=== PATIENT | female | born 1950 | race Caucasian/White ===

== ENCOUNTER 2018-07-28 17:42 | Observation (INO) ==
[2018-07-28] MEDS ORDERED: ASPIRIN PR ONE (17:55)
[2018-07-28 18:30] LABS: BASO# 0.02 X1000 (0.0-0.2); BASO% 0.2 % (0.0-0.8); EOS# 0.06 X1000 (0.0-0.7); EOS% 0.5 % (0.0-10.0); HEMOGLOBIN 13.3 g/dL (12.0-16.0); IMM GRAN# 0.03 X1000 (0.0-0.04); IMM GRAN% 0.3 % (0.0-0.5); LYMPH# 1.73 X1000 (1.2-3.4); LYMPH% 15.2 % (20.5-51.1); MCH 29.8 PG (27-31); MCHC 32.4 g/dL (33-37); MCV 91.7 FL (81-99); MONO# 0.29 X1000 (0.11-0.59); MONO% 2.5 % (1.7-9.3); MPV 10.9 FL (7.4-10.4); NEUT# 9.27 X1000 (1.4-6.5); NEUT% 81.3 % (42.2-75.2); PLT 225 X1000 (130-400); RBC 4.47 XMIL (4.2-5.4); RDW 12.6 % (11.5-14.5)
[2018-07-28 18:34] LABS: INR 0.88; PROTIME 12.6 Seconds (11.0-16.0)
[2018-07-28 18:35] LABS: PTT 29.7 Seconds (22.3-41.8)
[2018-07-28 19:01] LABS: AGAP 15; ALB/GLOB RATIO 1.6; ALBUMIN 4.3 g/dL (3.5-5.0); ALKALINE PHOSPHATASE 75 U/L (32-104); AMYLASE 155 U/L (20-200); BUN 14 mg/dL (8-22); CALCIUM 9.6 mg/dL (8.8-10.2); CHLORIDE 100 mmol/L (98-107); CK PROFILE 71 U/L (24-173); COSMO 279; CREATININE 0.7 mg/dL (0.5-0.9); ESTIMATED GFR > 60; GLUCOSE 146 mg/dL (70-104); GOT 18 U/L (10-30); GPT 20 U/L (10-36); LIPASE 28 U/L (13-60); POTASSIUM 4.1 mmol/L (3.5-5.1); SODIUM 138 mmol/L (136-145); TCO2 23 mmol/L (25-35)
--- NOTE | 2018-07-28 19:06 | Diag Imaging Result Doc PS360 ---
CHEST-2 VIEWS - 07/28/2018 INDICATION: CHEST PAIN COMPARISON: None FINDINGS: There is mild cardiomegaly. Pulmonary vascularity is top normal. No infiltrates or edema. No pneumothorax or pleural effusion. IMPRESSION: Cardiomegaly. Electronically signed by Leonard Chapman 07/28/2018 7:03 PM
[2018-07-28] MEDS ORDERED: ASPIRIN PO ONE (19:23)
[2018-07-28] MEDS ORDERED: ZOFRAN ODT PO ONE (19:59)
[2018-07-28 20:51] LABS: URINE SOURCE CLEAN CATCH
[2018-07-28 21:03] LABS: BILIRUBIN URINE NEGATIVE (NEGATIVE); BLOOD URINE SMALL (NEGATIVE); CLARITY CLOUDY (CLEAR); COLOR YELLOW; GLUCOSE URINE NEGATIVE (NEGATIVE); KETONE URINE 40 mg/dL (NEGATIVE); LEUKOCYTES URINE MODERATE (NEGATIVE); NITRITE URINE NEGATIVE (NEGATIVE); PH URINE 5.5; PROTEIN URINE TRACE mg/dL (NEGATIVE); SP GRAVITY URINE >= 1.030; UROBILINOGEN URINE 0.2 EU/dL (0.2-1.0)
[2018-07-28 21:08] LABS: URINE EPITHELIAL CELLS <10 /HPF (<10); URINE RBC <10 /HPF (<10)
[2018-07-28 21:09] LABS: URINE BACTERIA NEGATIVE /HFP; URINE CAST NONE SEEN /LPF; URINE CRYSTAL NONE SEEN /HPF; URINE SMALL ROUND CELLS TRANSITIONAL PRESENT; URINE YEAST NONE SEEN /HPF
[2018-07-28 21:17] LABS: URINE WBC 20-40 /HPF (<10)
--- NOTE | 2018-07-28 22:02 | Diag Imaging Result Doc PS360 ---
US GB < RUQ (LIMITED) - 07/28/2018 INDICATION: RUG pain TECHNIQUE: COMPARISON: FINDINGS: There is significant fatty change of the liver. The gallbladder is slightly distended. The gallbladder measures about 7.5 x 3.2 cm. There are numerous shadowing gallstones. The patient is apparently tender over the gallbladder. Common bile duct measures 6 mm. No intrahepatic biliary dilation. The pancreas and right kidney are normal. There is a small right renal cyst measuring 1 cm. Aorta, IVC, and main portal vein are patent. IMPRESSION: 1. Gallstones in the gallbladder. Gallbladder tenderness and distention. Suggestive of early acute cholecystitis. Correlate clinically. 2. Significant fatty liver. Electronically signed by Leonard Chapman 07/28/2018 9:59 PM
[2018-07-28] MEDS ORDERED: MORPHINE IV ONE (22:10)
[2018-07-28] MEDS ORDERED: BENADRYL IV ONE (22:11)
--- NOTE | 2018-07-28 22:16 | PROVIDER DOCUMENTATION ---
This chart was entered by Jenae Roger Scribe, acting as scribe for Jorge De Leon MD. HPI-Abdominal Pain/GI Problem - General Chief Complaint: Chest Pain Stated Complaint: HEART ATTACK Time Seen by Provider: 07/28/18 19:59 Source: patient Allergies/Adverse Reactions: Patient Allergies Allergy/AdvReac Type Severity Reaction Status Date / Time No Known Allergies Allergy Verified 07/28/18 20:18 Home Medications: Home Medication List Medication Instructions Recorded Confirmed Last Taken Type Promethazine [Phenergan] 25 mg PO Q6H PRN PRN #20 tab 07/28/18 Unknown Rx Tramadol [Ultram] 50 mg PO Q8HR #20 tab 07/28/18 Unknown Rx - History of Present Illness-ABD Nature of Presenting Problems: pt is a 68 yr old female presenting with RUQ pain, nausea and vomiting onset 1430 today, pt reports Zofran at home without relief. pain radiates across abdomen. pt denies diarrhea but admits having approx 6 stools isince onset. no fever/chills. Abdominal Pain Onset Location: reports: RUQ Pain Radiation: reports: LUQ, epigastric Quality of Pain: reports: cramping, pressure, sharp Severity in ED: reports: severe Onset/Duration: reports: abrupt (1429) Timing: reports: constant (pain is constant but has waves of increased pain) Exposure to sick contacts?: No Modifying Factors: improves with: other medication (Zofran without) Associated Symptoms: reports: nausea, vomiting. denies: constipation, diarrhea , fever/chills, genitourinary problems, shortness of breath Last BM: this evening Dark Stools Present?: reports: none noticed Rectal Bleeding: reports: none # of Diarrhea Episodes: 0 (deneis diarrhea but reports 6 stools since onset) Rectal Pain: reports: none Emesis Description: reports: other (bile) Bruising or Bleeding Gums?: No Similar Symptoms Previously?: No Recently seen or treated by another doctor?: No Review of Systems - Adult - REVIEW OF SYSTEMS - ADULT Constitutional: reports: no symptoms reported Eyes: reports: no symptoms reported Ears, Nose, Mouth & Throat: reports: no symptoms reported Cardiovascular: reports: no symptoms reported Respiratory: reports: no symptoms reported Gastrointestinal: reports: no symptoms reported Genitourinary: reports: no symptoms reported Musculoskeletal: reports: no symptoms reported Integumentary: reports: no symptoms reported Neurological: reports: no symptoms reported Psychiatric: reports: no symptoms reported Endocrine: reports: no symptoms reported Hematologic/Lymphatic: reports: no symptoms reported Allergic/Immunologic: reports: no symptoms reported All Other Systems: Reviewed and Negative Past History - Adult - PAST MEDICAL HISTORY-ADULT Review of Records: reports: Old Records Reviewed, Nursing Assessment Review, Medications Reviewed, Social history reviewed & non-contributory. Major Childhood Illnesses: reports: denies history Cardiovascular: reports: denies history Respiratory: reports: denies history Gastrointestinal: reports: denies history Obstetrical/Gynecological: reports: denies history Genitourinary: reports: denies history Musculoskeletal: reports: denies history Neurological: reports: denies history Endocrine/Immune: reports: denies history Other Conditions: reports: denies history - PRIOR SURGERIES/PROCEDURES Surgical/Procedure History: reports: none - FAMILY HISTORY Family History: reviewed, not pertinent - SOCIAL HISTORY Smoking: denies Substance Use: none/never Alcohol Use Frequency: never Living Situation: family Physical Exam-General - PHYSICAL EXAM-ADULT Initial Vital Signs Reviewed: Yes - CONSTITUTIONAL General Appearance: appears well - EYES Eyes: pink conjunctivae - HEAD, EARS, NOSE, MOUTH & THROAT HENMT: moist mucous membranes - NECK Neck: full range of motion - RESPIRATORY Respiratory: chest non-tender, lungs clear, normal breath sounds, no pleuratic chest pain. negative: crackles, rales, rhonchi - CARDIOVASCULAR Cardiovascular: normal peripheral pulses, regular rate, rhythm, no edema - GASTROINTESTINAL (ABDOMEN) Abdominal Exam: normal bowel sounds, Daigle's sign. negative: non tender, soft , guarding, rigid, rebound, tenderness - LYMPHATIC Lymphatic: no adenopathy - MUSCULOSKELETAL Back Exam: normal inspection Extremity: normal range of motion, non-tender, normal gait - SKIN Integumentary: normal color, normal turgor, warm/dry - NEUROLOGIC Neurologic: grossly normal - PSYCHIATRIC Psych/Mental Status: normal mood/affect, normal thought content, normal thought process, oriented x 3, anxious Progress - PLAN OF CARE/RESULTS Progress/Plan/Lab Results: Vital Signs - 8 hr 07/28/18 17:53 Temperature 97.4 F L Pulse Rate 58 L Respiratory Rate 22 Blood Pressure 135/67 O2 Sat by Pulse Oximetry 100 Laboratory Results - last 24 hr 07/28/18 07/28/18 07/28/18 17:58 17:58 17:58 WBC 11.40 H RBC 4.47 Hgb 13.3 Hct 41.0 MCV 91.7 MCH 29.8 MCHC 32.4 L RDW Std Deviation 12.6 Plt Count 225 MPV 10.9 H Immature Gran % (Auto) 0.3 Neut % (Auto) 81.3 H Lymph % (Auto) 15.2 L [place] % (Auto) 2.5 Eos % (Auto) 0.5 Baso % (Auto) 0.2 Immature Gran # (Auto) 0.03 Neut # (Auto) 9.27 H Lymph # (Auto) 1.73 [place] # (Auto) 0.29 Eos # (Auto) 0.06 Baso # (Auto) 0.02 PT INR PTT (Actin FS) Sodium 138 Potassium 4.1 Chloride 100 Carbon Dioxide 23 L Anion Gap 15 BUN 14 Creatinine 0.7 Estimated GFR/1.73 m2 > 60 BUN/Creatinine Ratio 20 Glucose 146 H Calculated Osmolality 279 Calcium 9.6 Total Bilirubin 0.30 AST 18 ALT 20 Alkaline Phosphatase 75 Creatine Kinase 71 Troponin T Ooy-[id number] Pept 131 Total Protein 7.0 Albumin 4.3 Globulin 2.7 Albumin/Globulin Ratio 1.6 Amylase 155 Lipase 28 Urine Source Urine Color Urine Clarity Urine pH Ur Specific [place] Urine Protein Urine Ketones Urine Blood Urine Nitrite Urine Bilirubin Urine Urobilinogen Urine Microscopic RBC Urine WBC Urine Microscopic WBC Ur Epithelial Cells Urine Crystals Small Round Cells Urine Bacteria Urine Casts Urine Yeast Urine Glucose 07/28/18 07/28/18 07/28/18 17:58 17:58 17:58 WBC RBC Hgb Hct MCV MCH MCHC RDW Std Deviation Plt Count MPV Immature Gran % (Auto) Neut % (Auto) Lymph % (Auto) [place] % (Auto) Eos % (Auto) Baso % (Auto) Immature Gran # (Auto) Neut # (Auto) Lymph # (Auto) [place] # (Auto) Eos # (Auto) Baso # (Auto) PT 12.6 INR 0.88 PTT (Actin FS) 29.7 Sodium Potassium Chloride Carbon Dioxide Anion Gap BUN Creatinine Estimated GFR/1.73 m2 BUN/Creatinine Ratio Glucose Calculated Osmolality Calcium Total Bilirubin AST ALT Alkaline Phosphatase Creatine Kinase Troponin T < 0.010 Bti-[id number]-Cbnqzphfppu Pept Total Protein Albumin Globulin Albumin/Globulin Ratio Amylase Lipase Urine Source CLEAN CATCH Urine Color YELLOW Urine Clarity CLOUDY A Urine pH 5.5 Ur Specific [place] >= 1.030 Urine Protein TRACE A Urine Ketones 40 A Urine Blood SMALL A Urine Nitrite NEGATIVE Urine Bilirubin NEGATIVE Urine Urobilinogen 0.2 Urine Microscopic RBC <10 Urine WBC MODERATE A Urine Microscopic WBC 20-40 A Ur Epithelial Cells <10 Urine Crystals NONE SEEN Small Round Cells TRANSITIONAL PRESENT Urine Bacteria NEGATIVE Urine Casts NONE SEEN Urine Yeast NONE SEEN Urine Glucose NEGATIVE Orders Category Date Time Status Cardiac Monitoring DIRECTED Care 07/28/18 17:56 Inactive Cardiac Monitoring DIRECTED Care 07/28/18 19:23 Active Oxygen Therapy- ED Nursing DIRECTED Care 07/28/18 17:56 Inactive Oxygen Therapy- ED Nursing DIRECTED Care 07/28/18 19:23 Active Saline Loc DIRECTED Care 07/28/18 17:56 Active Saline Loc NOW Care 07/28/18 17:56 Inactive Saline Loc NOW Care 07/28/18 19:23 Active NPO Diet 07/28/18 17:56 Active CHEST-2 VIEWS [RAD] Stat Exams 07/28/18 17:56 Completed AMYLASE [CHEM] Stat Lab 07/28/18 17:58 Completed CBC WITH ELECTRONIC DIFF [HEME] Stat Lab 07/28/18 17:58 Completed CK PROFILE [SP CHEM] Stat Lab 07/28/18 17:58 Completed COMPREHENSIVE METABOLIC PANEL [CHEM] Stat Lab 07/28/18 17:58 Completed LIPASE [CHEM] Stat Lab 07/28/18 17:58 Completed PRO B-NATRIURETIC PEPTIDE Stat Lab 07/28/18 17:58 Completed PROTIME WITH INR [COAG] Stat Lab 07/28/18 17:58 Completed PTT [COAG] Stat Lab 07/28/18 17:58 Completed TROPONIN T Stat Lab 07/28/18 17:58 Completed URINE CULTURE [RM] Routine Lab 07/28/18 21:09 Received Aspirin Med 07/28/18 19:23 Discontinued 325 mg PO NOW ONE Ondansetron Odt [Zofran Odt] Med 07/28/18 19:59 Discontinued 4 mg PO NOW ONE CP/SOB/Palp >45 yrs of Age Stat Oth 07/28/18 19:23 Ordered EKG [EKG] Stat Ther 07/28/18 19:23 Ordered Result Diagrams: 07/28/18 17:58 07/28/18 17:58 - ULTRASOUND (By Radiology) 1 US Study: Gallbladder Impression: Abnormal ([facility] [address], [address], [place] [address] Department of Imaging Patient: GEENA MCMAHON Date: 07/28/18#: [id number] : 1950DM Status: REG [facility]#: [id number] Age/Sex: 68/FRoom/Bed: Loc: ED Ordering Physician: Jorge De Leon MD Family Physician: Robbie Christy MD Reason for Procedure: RUG pain Signed US GB < RUQ (LIMITED) - 07/28/2018 INDICATION: RUG pain TECHNIQUE: COMPARISON: FINDINGS: There is significant fatty change of the liver. The gallbladder is slightly distended. The gallbladder measures about 7.5 x 3.2 cm. There are numerous shadowing gallstones. The patient is apparently tender over the gallbladder. Common bile duct measures 6 mm. No intrahepatic biliary dilation. The pancreas and right kidney are normal. There is a small right renal cyst measuring 1 cm. Aorta, IVC, and main portal vein are patent. IMPRESSION: 1. Gallstones in the gallbladder. Gallbladder tenderness and distention. Suggestive of early acute cholecystitis. Correlate clinically. 2. Significant fatty liver. Electronically signed by Leonard Chapman 07/28/2018 9:59 PM 07/28/182158 Interpreting Physician: Leonard Chapman MD Dictated Date/Time: 07/28/182151 cc: Jorge De Loen MD; Robbie Christy MD) - CONSULTS/PCP/HOSPITALIST Notification #1 *Consult/PCP/Hospitalist*: Antonio Marquez Time Discussed: 22:14 Consult Disposition: Admit Departure - Departure Date of Disposition Decision: 07/28/18 Time of Disposition Decision: 22:13 DIAGNOSIS: Acute cholecystitis Disposition: ADMITTED INPATIENT 09 Certified Medical Emergency: Emergent Condition: Fair Prescriptions: Promethazine [Phenergan] 25 mg PO Q6H PRN PRN #20 tab PRN Reason: Nausea Tramadol [Ultram] 50 mg PO Q8HR #20 tab Referrals and Follow-Ups: Robbie Christy MD [Primary Care Provider] - - Critical Care Note This patient required my direct & personal management of CC.: No Attestation - Physician/ BRIAN Attestation Patient care was provided by Advanced Practice Provider:: No The physician spent face to face time with patient:: Yes Advanced Practice Provider documentation review:: Supervising physician onsite and consulted in the evaluation and care of this patient. The physician did have a face to face encounter with the patient. This chart was documented by the indicated scribe, (Jenae Roger Scribe) and accurately reflects the services I performed and decisions made by me, Jorge De Leon MD, as attested by the provider's signature.
[2018-07-28] MEDS ORDERED: NS 1,000 ML IV ONE (22:17)
[2018-07-28] MEDS ORDERED: ZOFRAN IV ONE (22:26)
[2018-07-28] MEDS ORDERED: ZOSYN 3.375 GM in NS 50 ML IV ONE (22:49)
[2018-07-28] MEDS ORDERED: FLAGYL 500 MG/NS 500 MG/100 ML IVPB IV ONE (23:34)
[2018-07-28] MEDS ORDERED: CIPRO 400 MG/D5W 400 MG/200 ML IVPB IV ONE (23:36)
[2018-07-29] MEDS ORDERED: ZOFRAN IV PRN (00:13)
[2018-07-29] MEDS: LR 1,000 ML IV SCH ×3 (01:43→23:03)
[2018-07-29] MEDS: MORPHINE IV PRN ×3 (01:52→11:51)
--- NOTE | 2018-07-29 04:23 | HISTORY AND PHYSICAL ---
DATE: 07/28/2018 HISTORY OF PRESENT ILLNESS: This 68-year-old female who has had vague GI complaints for sometime colicky pains made worse with fatty food. She had a more severe episode starting earlier this afternoon that was unrelenting, a tight bandlike pain across her upper abdomen. She had intractable nausea and vomiting associated with this. She has had some diarrhea. No fevers. No jaundice. Otherwise she has been in her usual state of health. She was told she had a hypofunctioning gallbladder sometime ago. PAST MEDICAL HISTORY: 1. Endometriosis. 2. Mitral valve prolapse followed closely by Dr. Winchester, her software engineer and Dr. Robbie Christy her primary care physician, but has never had any coronary event. PAST SURGICAL HISTORY: She has had a hysterectomy, bilateral salpingo-oophorectomy for complications associated with endometriosis. SOCIAL HISTORY: No tobacco, alcohol, or drugs. She is . FAMILY HISTORY: Significant for coronary disease. REVIEW OF SYSTEMS: Ten point negative. PHYSICAL EXAMINATION: Vital Signs: Temperature is 97.4 degrees, pulse has been in the 50s-60s, oxygen saturations mid 90s, blood pressure 140/63. General: She is alert. HEENT: There is no scleral icterus. No cervical mass. Cardiovascular: Normal rate, regular rhythm. Pulmonary: No increased work of breathing. Abdomen: Soft. She has some tenderness in the upper abdomen, but no peritonitis. Integument: Warm and dry without jaundice. Psychiatric: Appropriate affect. Neurologic: No gross deficits. Lymphatic: No cervical, supraclavicular, infraclavicular, or axillary adenopathy. Peripheral Vascular: No lower extremity edema. LABORATORY DATA: White count is 11, hematocrit 41, platelets 225,000. Creatinine is 0.7. LFT is normal with bilirubin 0.30. AST, ALT, and alkaline phosphatase are normal. Albumin is normal. Lipase is normal. Urinalysis, she does have some white blood cells in her urine. I reviewed her ultrasound obtained by the Emergency Department and shows gallstones, positive sonographic Daigle sign and gallbladder distention suggestive of possible cholecystitis. She does have fatty liver as well. ASSESSMENT AND PLAN: This is a 68-year-old female with acute cholecystitis and gallstones. We discussed the risks of bleeding, infection, damage to surrounding structures, bile leak, conversion to open, possibility of an endoscopic retrograde cholangiopancreatography if stones are noted and all other possible complications associated with cholecystectomy. She understands all this and consents to laparoscopic cholecystectomy with cholangiogram. We will make her nothing per oral, start her on Zosyn and admit her for intravenous pain medication, antiemetics. DISPOSITION: Pending findings at the time of surgery. cc: Isabel Marquez MD
[2018-07-29] MEDS: FLAGYL 500 MG/NS 500 MG/100 ML IVPB IV SCH ×3 (04:36→17:09)
--- NOTE | 2018-07-29 07:41 | EKG Report ---
Test Performed on : 07/28/2018 5:54:05 PM Test Reason : CPAIN Blood Pressure : / mmHG Vent. Rate : 053 BPM Atrial Rate : 053 BPM P-R Int : 142 ms QRS Dur : 090 ms QT Int : 478 ms P-R-T Axes : 089 016 027 degrees QTc Int : 448 ms Sinus bradycardia. Otherwise normal ECG No previous ECGs available Unconfirmed Result
[2018-07-29] MEDS ORDERED: CIPRO 400 MG/D5W 400 MG/200 ML IVPB IV SCH (12:30)
[2018-07-29] MEDS ORDERED: SENSORCAINE-MPF 0.5%/EPI 1:200,000 ONE (14:56)
[2018-07-29] MEDS ORDERED: SODIUM CHLORIDE 0.9% ONE (14:56)
[2018-07-29] MEDS ORDERED: LR 1,000 ML ONE (14:56)
[2018-07-29] MEDS ORDERED: XYLOCAINE-MPF 2% ONE ×2 (16:13→17:04)
[2018-07-29] MEDS ORDERED: ROBINUL ONE ×2 (16:13→16:14)
[2018-07-29] MEDS ORDERED: QUELICIN (DOSE) ONE ×2 (16:14→17:04)
[2018-07-29] MEDS ORDERED: ZEMURON ONE (16:15)
[2018-07-29] MEDS ORDERED: FENTANYL ONE (16:16)
[2018-07-29] MEDS ORDERED: DIPRIVAN 1% ONE ×2 (16:17→17:04)
[2018-07-29] MEDS ORDERED: PEPCID ONE (16:56)
[2018-07-29] MEDS ORDERED: VERSED ONE (17:05)
[2018-07-29] MEDS ORDERED: DECADRON ONE (17:19)
[2018-07-29] MEDS ORDERED: TORADOL ONE (17:19)
[2018-07-29] MEDS ORDERED: ZOFRAN ONE (17:19)
[2018-07-29] MEDS ORDERED: OFIRMEV 1000 MG/ISOTONIC SOLN 1,000 MG/100 ML BOTTLE ONE (17:19)
[2018-07-29] MEDS ORDERED: NEOSTIGMINE ONE (17:50)
--- NOTE | 2018-07-29 18:10 | Diag Imaging Result Doc PS360 ---
EXAM: OPERATIVE CHOLANGIOGRAM HISTORY: CHOLECYSTITS TECHNIQUE: Intraoperative cholangiogram, single view COMPARISON: None. FINDINGS: Contrast fills the common bile duct and has emptied into the duodenum. No stone or stricture. IMPRESSION: Normal intraoperative cholangiogram. Electronically signed by Royal Merchant 07/29/2018 6:07 PM
[2018-07-29] MEDS ORDERED: IMITREX PO PRN (19:30)
[2018-07-29] MEDS ORDERED: ZOLOFT PO SCH (21:00)
[2018-07-29] MEDS ORDERED: PROMETRIUM PO SCH (21:00)
--- NOTE | 2018-07-30 03:14 | OPERATIVE NOTE ---
PROCEDURE DATE: 07/29/2018 PREOPERATIVE DIAGNOSIS: Acute cholecystitis. POSTOPERATIVE DIAGNOSIS: Acute cholecystitis. PROCEDURE PERFORMED: Laparoscopic cholecystectomy with cholangiogram. ESTIMATED BLOOD LOSS: 20 mL. SPECIMENS: Gallbladder. ANESTHESIA: General. INDICATIONS: A 68-year-old female with epigastric and right upper quadrant abdominal pain, nausea, vomiting, and an ultrasound suggestive of cholecystitis. LFTs are normal. She also had gallstones. OPERATIVE FINDINGS: 1. There was an acutely inflamed, edematous, swollen, or distended gallbladder with small stones within the lumen of the gallbladder. 2. Interpretation of intraoperative cholangiogram showed rapid flow of contrast through a short cystic duct into a nondilated common bile duct and into the duodenum. Retrograde flow in the common hepatic and intrahepatic radicles appeared normal. OPERATIVE NOTE: The risks, benefits, and alternatives were discussed with the patient and she consented to the procedure. She was seen preoperatively and the surgical site was confirmed. She was taken to the operating room and placed in the supine position. General anesthesia was induced without complication. All bony prominences were padded. Abdomen was prepped with chlorhexidine solution and draped in the usual fashion. Scheduled antibiotics were confirmed. A time-out was performed and a supraumbilical midline incision was made which was carried down to the level of the fascia. The fascia was elevated. An incision along the midline was made and entered in an open controlled fashion. A 12 mm Maeve trocar was placed after incising the peritoneum under direct visualization. Her abdomen was insufflated to 15 mmHg. She tolerated this well. She was then placed in Trendelenburg, left side down. Three additional trocars, 5 mm, were placed with one in the epigastrium, one in the midclavicular line off the costal margin, and one more laterally. The gallbladder was grasped and retracted cephalad. We took down some omentum and duodenal adhesions, protecting the duodenum bluntly, identifying the infundibulum. The cystic duct was then dissected out at the junction with the infundibulum. We did this widely, creating a critical view through this triangle and identified the cystic artery as it coursed through this. We dissected the artery on both sides and it was the only structure entering the gallbladder through this triangle made with the cystic duct and the infundibulum. At this point, we doubly clipped the artery, placed a clip on the gallbladder side, made a ductotomy. There was a stone within the cystic duct that we milked out. We then performed a cholangiogram with the above findings. After satisfactory cholangiogram, we triply clipped the duct. We removed the gallbladder from the gallbladder fossa with care not to rupture and placed in the EndoCatch bag. It did partially avulse from the gallbladder fossa. We obtained hemostasis here. This was all secondary to the acute inflammation but we noted no bile leakage and no more bleeding. We irrigated copiously and noted hemostasis again. The duodenum was protected throughout all this, as well as the common bile duct. We removed the remaining trocars under direct visualization. Desufflated the abdomen. We had to extend our fascial incision to get the gallbladder out and we did this successfully. We closed the fascia, after removing the gallbladder intact, with interrupted 0 Vicryl sutures. Skin was closed with 4-0 Monocryl in a subcuticular fashion. Dermabond was applied. Counts were correct. She has awoken and transferred to recovery. I spoke with the family. cc: Isabel Marquez MD
[2018-07-30] MEDS: LR 1,000 ML IV SCH ×2 (04:42→09:43)
[2018-07-30] MEDS ORDERED: SYNTHROID PO SCH (07:00)
[2018-07-30] MEDS ORDERED: PRILOSEC PO SCH (07:00)
[2018-07-30 07:58] VITALS: BP 119/47
[2018-07-30 08:45] LABS: BASO# 0.01 X1000 (0.0-0.2); BASO% 0.1 % (0.0-0.8); HEMATOCRIT 36.8 % (37.0-47.0); HEMOGLOBIN 11.9 g/dL (12.0-16.0); IMM GRAN# 0.05 X1000 (0.0-0.04); IMM GRAN% 0.5 % (0.0-0.5); LYMPH# 1.29 X1000 (1.2-3.4); MCH 30.4 PG (27-31); MCHC 32.3 g/dL (33-37); MCV 93.9 FL (81-99); MONO# 0.57 X1000 (0.11-0.59); MONO% 5.3 % (1.7-9.3); MPV 10.6 FL (7.4-10.4); NEUT# 8.86 X1000 (1.4-6.5); NEUT% 82.1 % (42.2-75.2); PLT 182 X1000 (130-400); RBC 3.92 XMIL (4.2-5.4); RDW 12.8 % (11.5-14.5); WBC 10.78 X1000 (4.8-10.8)
[2018-07-30 09:00] LABS: AGAP 8; ALB/GLOB RATIO 1.3; ALBUMIN 3.2 g/dL (3.5-5.0); ALKALINE PHOSPHATASE 54 U/L (32-104); BUN 9 mg/dL (8-22); CALCIUM 8.8 mg/dL (8.8-10.2); CHLORIDE 106 mmol/L (98-107); COSMO 280; CREATININE 0.6 mg/dL (0.5-0.9); ESTIMATED GFR > 60; GLUCOSE 100 mg/dL (70-104); GOT 47 U/L (10-30); GPT 45 U/L (10-36); POTASSIUM 4.2 mmol/L (3.5-5.1); SODIUM 141 mmol/L (136-145); TCO2 27 mmol/L (25-35); TOTAL BILIRUBIN 0.36 mg/dL (0.20-1.00); TOTAL PROTEIN 5.7 g/dL (6.3-8.3)
[2018-07-30] MEDS ORDERED: EVISTA PO SCH (09:00)
--- NOTE | 2018-07-30 10:35 | DISCHARGE SUMMARY ---
ADMISSION DATE: 07/28/2018 DISCHARGE DATE: 07/30/2018 PREOPERATIVE DIAGNOSIS: Acute cholecystitis. POSTOPERATIVE DIAGNOSIS: Acute cholecystitis. PROCEDURE PERFORMED: Laparoscopic cholecystectomy with cholangiogram. HISTORY OF PRESENT ILLNESS: This is a 68-year-old female who presented with severe epigastric and right upper quadrant abdominal pain, nausea, and vomiting. Ultrasound suggested cholecystitis. Her LFTs were normal. HOSPITAL COURSE: The patient was seen in the emergency department and was taken on the day of her admission for the above procedure. For details, please see dictated operative note. Postoperatively, she did well. She was admitted to our service for pain control. Her diet was advanced. She was tolerating this. Her incisions were intact. On her repeat labs the next day, the white count had normalized. LFTs remained appropriate. Bilirubin was normal. AST and ALT were only mildly elevated. She was voiding. She was felt safe for discharge. DISPOSITION: Home to self-care. Discharge instructions were given in written and verbal form. DISCHARGE MEDICATIONS: She can continue taking her medication which she was given prescriptions for [place], Colace, and Zofran. FOLLOWUP APPOINTMENTS: With me in 1 week. cc: Isabel Marquez MD
== END 2018-07-30 12:43 | disposition home or self-care (01) ==
LOC: ED 17:42 → 4N 22:33 → INTOOBSV 22:33 → 4N 07-29 19:09
PROVIDERS: ADMIT Surgery; ATTEND Surgery
CPT/HCPCS: 71020; 71046; 74300; 76705; 80053; 81001; 82150; 82550; 83690; 83880; 84484; 85025; 85610; 85730; 87077; 87088; 87186; 88304; 93005; 94761; 96365; 96375; 99285; A9270; C1751; J0131; J0330; J0744; J1100; J1200; J1885; J2250; J2270; J2405; J2543; J3010; J7030; J7120; Q9966; Q9967; S0028; S0030